=== PATIENT | male | born 1990 | race African-American/Black ===

== ENCOUNTER 2018-12-29 21:38 | Emergency (ER) | payer OTHER ==
[~2018-12-29] VITALS: Ht 190.5 cm; Wt 120.2 kg
[2018-12-29] MEDS ORDERED: CIPROFLOXIN HC2.5 M1 OPHTHALMIC (22:31)
[2018-12-29 22:47] VITALS: BP 144/74
== END 2018-12-29 22:34 | disposition home or self-care (01) ==
LOC: ER 21:38
DX: S05.01XA Injury of conjunctiva and corneal abrasion without foreign body, right eye, initial encounter (principal); X58.XXXA Exposure to other specified factors, initial encounter; Y92.89 Other specified places as the place of occurrence of the external cause; Y93.89 Activity, other specified; Y99.8 Other external cause status